=== PATIENT | male | born 1970 | race Caucasian/White ===

== ENCOUNTER 2017-04-15 07:16 | Outpatient (CLI) | payer MEDICAID ==
[2017-04-15 07:48] LABS: BASOPHILS # (AUTO) 0.1 10^3/uL (0.0-0.1); EOSINOPHILS # (AUTO) 0.5 10^3/uL (0.0-0.7); EOSINOPHILS % (AUTO) 6.1 %; HCT - HEMATOCRIT 42.2 % (42.0-52.0); HGB - HEMOGLOBIN 14.7 g/dL (14.0-18.0); LYMPHOCYTES # (AUTO) 2.6 10^3/uL (1.5-3.5); LYMPHOCYTES % (AUTO) 29.1 %; MEAN CORPUSCULAR HEMOGLOBIN 30.9 pg (27.0-31.0); MEAN CORPUSCULAR HGB CONC 34.8 g/dL (32.0-36.0); MEAN CORPUSCULAR VOLUME 88.6 fL (80.0-94.0); MEAN PLATELET VOLUME 8.5 fL (7.4-11.4); MONOCYTES # (AUTO) 0.7 10^3/uL (0.0-1.0); MONOCYTES % (AUTO) 8.1 %; NEUTROPHILS % (AUTO) 55.7 %; NUCLEATED RED BLOOD CELLS AUTO 0.1 /100WBC; RED BLOOD COUNT 4.77 10^6/uL (4.70-6.10); RED CELL DISTRIBUTION WIDTH 12.6 % (12.0-15.0)
[2017-04-15 08:02] LABS: ALBUMIN/GLOBULIN RATIO 1.3 (1.0-2.2); BILIRUBIN,TOTAL 0.5 mg/dL (0.2-1.0); BUN - BLOOD UREA NITROGEN 22 mg/dL (6-20); CALCIUM 9.3 mg/dL (8.5-10.3); CARBON DIOXIDE - CO2 25 mmol/L (21-32); CHLORIDE 102 mmol/L (101-111); CHOL/HDL RATIO 4.7 (<5.0); CHOLESTEROL 212 mg/dL; CREATININE 0.8 mg/dL (0.6-1.2); GFR - MDRD 105 (>89); GLUCOSE 113 mg/dL (70-100); HDL CHOLESTEROL 45 mg/dL; LDL/HDL RATIO 3.3 (<3.6); POTASSIUM 4.3 mmol/L (3.5-5.0); SODIUM 140 mmol/L (135-145); TOTAL PROTEIN 7.7 g/dL (6.7-8.2); TRIGLYCERIDES 95 mg/dL; VLDL CHOLESTEROL 19 mg/dL
== END 2017-04-15 07:17 | disposition home or self-care (01) ==
LOC: LAB 07:16
PROVIDERS: ATTEND Family Medicine
DX: I10 Essential (primary) hypertension (principal); E78.5 Hyperlipidemia, unspecified
CPT/HCPCS: 36415; 80053; 80061; 85025

== ENCOUNTER 2018-06-13 14:28 | Outpatient (CLI) | payer BC, MEDICAID ==
[2018-06-13] MEDS ORDERED: IOVERSOL 320 100 ML VIAL IVP ONE ×2 (14:42→14:57)
--- NOTE | 2018-06-13 15:54 | CT Report ---
Reason: LYMPHADENOPATHY, SOFT TISSUE MASS Procedure Date: 06/13/2018 Accession Number: [id number] / [id number] Procedure: CT - Neck Soft Tissue W/ CPT Code: FULL RESULT: EXAM: CT SOFT TISSUE NECK WITH CONTRAST. EXAM DATE: 06/13/2018 02:55 PM. HISTORY: 48-year-old with palpable right neck mass. Evaluate for neck pathology. COMPARISONS: None. TECHNIQUE: Routine soft tissue neck CT protocol. Reconstructions: Coronal and sagittal. IV contrast: OPTI 320 [address] ML. In accordance with CT protocol optimization, one or more of the following dose reduction techniques were utilized for this exam: automated exposure control, adjustment of mA and/or KV based on patient size, or use of iterative reconstructive technique. FINDINGS: Visualized Intracranial Contents: Unremarkable. Orbits: Symmetric and unremarkable. Sinuses: Small left maxillary mucosal retention cyst versus polyp. Oral cavity: The visualized floor of mouth appears normal. The visualized intrinsic muscles of the tongue appear normal. Visualized glossotonsillar sulci appear preserved. There is slight prominence of the lingual tonsils also with no discrete abnormal masslike enhancement seen. Pharynx : Effacement of the fossa of Rosenmuller with no discrete mass or masslike enhancement seen. The torus tubarius appear symmetric. The mucosal and parapharyngeal spaces of the nasopharynx appear normal. There is prominence to the tonsillar pillars with no discrete mass or masslike enhancement seen. Parapharyngeal spaces and the oropharynx appeared normal. Pre-epiglottic fat and epiglottis appear normal. Asymmetry to the piriform sinuses with a larger left piriform sinus compared to the right. No discrete mass or masslike enhancement seen. Otherwise, the hypopharynx and retropharynx appear normal. Retropharyngeal spaces appear normal. The airway is patent. Larynx: There is asymmetric thickening of the right vocal fold compared to the left with no discrete mass or masslike enhancement seen. Otherwise, the larynx and supraglottic space appear normal. The visualized trachea is unremarkable. Parotid and Submandibular Glands: Bilateral parotid glands appear normal. There is mild hyperenhancement of the right parotid gland compared to the left. There is punctate calcification seen within the proximal right submandibular gland duct measuring up to 5 mm (series 3, image 66). There is prominence of the intraglandular ducts. Lymph Nodes: There are small subcentimeter cervical lymph nodes seen throughout the neck that do not meet CT size criteria for pathology. Sampled lymph nodes include: 1. Right level 2A measuring up to 7 mm in short axis dimension (series 3, image 68). 2. Left level 2B lymph node measuring up to 5 mm in short axis dimension (series 3, image 67). 3. Right level 2B measuring up to 4 mm in short axis imaging (series 3, image 72). 4. Right level 4B lymph node measuring up to 4 mm in short axis dimension (series 3, image 83). Soft tissues: CT marker seen overlying the upper right lateral neck. The CT marker overlies the right parotid gland. No other mass, inflammatory process, fluid collection or abnormal postcontrast enhancement seen within the neck. Vascular Structures: Unremarkable. Thyroid Gland: Normal. Lung: The visualized lung apices are clear. Bones: No evidence of acute fracture or malalignment. There are mild degenerative changes. Other: None. IMPRESSION: 1. CT findings suggesting mild right submandibular gland sialoadenitis likely due to 5 mm sialolith within the proximal right submandibular gland duct, as detailed above. 2. No evidence of cervical lymphadenopathy. RADIA
== END 2018-06-13 14:29 | disposition home or self-care (01) ==
LOC: DI 14:28
PROVIDERS: ATTEND Family Medicine
DX: R59.1 Generalized enlarged lymph nodes (principal); M79.9 Soft tissue disorder, unspecified
CPT/HCPCS: 70491; Q9967

== ENCOUNTER 2018-06-26 10:10 | Day surgery (SDC) | payer BC ==
[2018-06-26] MEDS ORDERED: ceFAZolin 2 GM/50 ML 2 GM/50 ML BAG IV ONE (10:20)
[2018-06-26] MEDS ORDERED: LACTATED RINGERS 1,000 ML IV ONE ×2 (10:50→14:18)
[2018-06-26] MEDS ORDERED: BUPIVACAINE 0.5% PF 30 ML VIAL ONE (11:00)
--- NOTE | 2018-06-26 11:09 | ANESTHESIA ---
Pre-Anesthesia VS, & Labs - Diagnosis subcutaneous soft tissue mass at L ankle - Procedure Excision soft tissue mass at left ankle Vital Signs: Temp Pulse Resp BP Pulse Ox 36.8 C 70 16 164/84 H 100 06/26/18 10:15 06/26/18 10:15 06/26/18 10:15 06/26/18 10:15 06/26/18 10:15 Height 5 ft 6 in Weight (kg) 84.8 kg - NPO >8 hours Home Medications and Allergies Home Medications: Ambulatory Orders ALPRAZolam [Alprazolam] 0.5 mg PO ONCE PRN 06/21/18 Atorvastatin [Lipitor] 10 mg PO DAILY 06/21/18 Lisinopril 5 mg PO DAILY 06/21/18 Paroxetine HCl [Paxil] 40 mg PO DAILY 06/21/18 ALPRAZolam [Alprazolam] 0.5 mg PO ONCE PRN 06/21/18 Atorvastatin [Lipitor] 10 mg PO DAILY 06/21/18 Lisinopril 5 mg PO DAILY 06/21/18 Paroxetine HCl [Paxil] 40 mg PO DAILY 06/21/18 Allergies/Adverse Reactions: Allergies Allergy/AdvReac Type Severity Reaction Status Date / Time avocado Allergy Anaphylaxis Verified 06/21/18 11:25 [place] And Derivatives Allergy Anaphylaxis Verified 06/21/18 11:25 latex Allergy Rash Verified 06/21/18 11:25 Penicillins Allergy Rash Verified 06/21/18 11:25 lactose AdvReac gassy Verified 06/21/18 11:25 Anes History & Medical History - Anesthetic History Anesthesia Complications: reports: No previous complications Family history of Anesthesia Complications: Denies Family history of Malignant Hyperthermia: Denies - Medical History Cardiovascular: reports: Hypertension, High cholesterol, Murmur Pulmonary: reports: Asthma Gastrointestinal: reports: None Urinary: reports: None Musculoskeletal: reports: Osteoarthritis Endocrine/Autoimmune: reports: None Skin: reports: None Smoking Status: Current every day smoker Psychosocial: reports: Alcohol (4-5 month) - Surgical History Orthopedic: Rotator cuff repair, Arthroscopic surgery Exam General: Alert, Oriented x3, Cooperative Dental: WNL, Poor dentition Mouth Openin Fingerbreadth Neck Mobility: Normal Mallampati classification: II Thyromental Distance: 4-6 cm Respiratory: Lungs clear, Normal breath sounds Cardiovascular: Regular rate Neurological: Normal speech Mental/Cognitive Status: Alert/Oriented X3, Normal for patient Cognitive Status: Within normal limits Plan Anesthesia Type: General Consent for Procedure(s) Verified and Reviewed: Yes Code Status: Attempt Resuscitation ASA classification: 2-Mild systemic disease Is this case an emergency?: No
[2018-06-26] MEDS ORDERED: KETOROLAC 30 MG/ML VIAL IVP ONE (13:00)
[2018-06-26] MEDS ORDERED: fentaNYL 100 MCG/2 ML VIAL IVP ONE (13:00)
[2018-06-26] MEDS ORDERED: ONDANSETRON 4 MG/2 ML VIAL IVP ONE (13:00)
[2018-06-26] MEDS ORDERED: PROPOFOL 200 MG/20 ML VIAL IVP ONE (13:00)
[2018-06-26] MEDS ORDERED: LIDOCAINE-MPF 2% 5 ML VIAL IM ONE (13:00)
[2018-06-26] MEDS ORDERED: DEXAMETHASONE 4 MG/ML VIAL IVP ONE (13:00)
[2018-06-26] MEDS ORDERED: MIDAZOLAM 2 MG/2 ML VIAL IVP ONE (13:00)
[2018-06-26] MEDS ORDERED: BUPIVACAINE 0.5% PF 30 ML VIAL INFIL ONE ×2 (13:15)
[2018-06-26] MEDS ORDERED: ONDANSETRON 4 MG/2 ML VIAL IVP PRN (14:40)
[2018-06-26] MEDS ORDERED: HYDROcod/ACETAM 5/325 MG TABLET PO PRN (14:40)
[2018-06-26] MEDS ORDERED: HYDROmorphone 0.5 MG/0.5 ML SYRINGE IVP PRN (14:40)
--- NOTE | 2018-06-26 14:50 | OPERATIVE REPORT ---
Operative Report - General Planned Procedure: Excision of left lateral ankle subcutaneous mass Pre-Op Diagnosis: Left lateral ankle subcutaneous mass Procedure Performed: Excision of left lateral ankle subcutaneous mass Post Op Diagnosis: Same - Procedure Note Primary Surgeon: Jesus Lujan MD Anesthesia Provider: Sarabjit Sebastian CRNA Anesthesia Technique: General LMA, Local (20 mL of half percent Marcaine) IV Fluids (mL): 600 Estimated Blood Loss (mL): 50 Drain/Tube Type: Other (None.) Complications: None. - Other Other Information/Narrative: OPERATIVE DESCRIPTION/REPORT: After verbal and written informed consent was obtained detailing the risks of infection, bleeding requiring transfusion with its risks, nerve injury, and , and after I met with the patient confirming the surgery and the site of t he surgery and after initialing the site of the surgery with a surgical marker, the patient was brought to the operative suite and placed supine on the operating table. Great care was taken to avoid pressure points to prevent pressure necrosis or nerve injury. Monitoring devices were applied along with TEDs and pneumatic compressive stockings on the nonoperative leg (to prevent DVT). The patient received preoperative antibiotics for surgical prophylaxis. Sarabjit Sebastian CRNA sedated and anesthetized the patient for the entire procedure. The patient was prepped and draped in the usual sterile manner. With the patient draped my initials were clearly visible. A "time in" then confirmed that the patient was identified with 3 identifiers (name, date and medical record number), the history and physical was in the chart, the signed consent confirming the procedure was in the chart, the patient was in the correct position, the aforementioned prophylactic measures were in place or g iven, we had the correct personnel and equipment to complete the procedure and that anesthesia, surgery and nursing were given an opportunity to express any concerns. With the agreement of everyone in the room, we proceeded with the operation. A curvilinear incision was made using a scalpel overlying the mass. The mass was encountered just underneath the skin and it was very difficult to raise a flap between the skin in this mass as it was densely adherent. Note that this mass was very hard in nature and was certainly not a cyst or a lipoma. It was an off white color. If I had been able to raise a flap, the flap would have been so thin that the skin would have necrosed. As such, I used an elliptical incision using Bovie electrocautery to incise down to the mass and was able to raise flaps superiorly and inferiorly where the mass was less adherent. In such a manner I was able to dissect the mass free and transition up over the top of the mass onto the posterior aspect of the mass. Throughout the dissection there were dense adhesions to the surrounding tissues as well as microvasculature. Every attempt was made to stay on the tumor with the dissection. This was done using a combination of blunt dissection with a Laurence, blunt dissection with the suction tip, Bovie electrocautery, sharp dissection with the scalpel as well as Metzenbaum scissors. The dissection proceeded along the posterior aspect of the mass inferiorly until I was able to get back to the adherent skin and incising across the skin able to resect the entire mass. The mass was then sent, unoriented, to pathology for evaluation. Meticulous hemostasis was then obtained using Bovie electrocautery. Please note the mass measured 5 x 5 x 2.5 cm and the incision needed to excise it was 8 cm in length. The skin incision was approximated using interrupted alternating simple and mattress 3-0 Nylon sutures. A dressing was applied, followed by Kerlix and an Yobani bandage. At this point a time out was performed that confirmed that all the counts were correct, the procedure that was performed, the blood loss, the IV fluids administered, and the patients condition. Having tolerated the procedure well, the patient was subsequently taken to recovery room in good and stable condition. Robinsonon disclaimer: This document was created in part using voice recognition technology. Because of the inherent limitations of the system ([employer] user manual states that the licensee understands that speech recognition is a statistical process and that recognition errors are inherent in the process), occasional same sounding word substitutions and grammatical errors do occur and persist despite proofreading. Please read this document for context.
[2018-06-26] MEDS ORDERED: HYDROcod/ACETAM 5/325 MG TABLET ONE (15:23)
[2018-06-26 15:53] VITALS: BP 125/66
== END 2018-06-26 10:11 | disposition home or self-care (01) ==
LOC: SDS 10:10
PROVIDERS: ATTEND Surgery
PROC: 0JBR0ZZ Excision of Left Foot Subcutaneous Tissue and Fascia, Open Approach (ICD-10-PCS; principal; 2018-06-26 11:30)
DX: D23.72 Other benign neoplasm of skin of left lower limb, including hip (principal); I10 Essential (primary) hypertension; R01.1 Cardiac murmur, unspecified; M19.90 Unspecified osteoarthritis, unspecified site; E66.01 Morbid (severe) obesity due to excess calories; Z68.32 Body mass index [BMI] 32.0-32.9, adult; J45.909 Unspecified asthma, uncomplicated; F43.10 Post-traumatic stress disorder, unspecified; F41.9 Anxiety disorder, unspecified; I49.9 Cardiac arrhythmia, unspecified; E78.00 Pure hypercholesterolemia, unspecified; F32.9 Major depressive disorder, single episode, unspecified; F17.210 Nicotine dependence, cigarettes, uncomplicated; F17.220 Nicotine dependence, chewing tobacco, uncomplicated; Z72.89 Other problems related to lifestyle
CPT/HCPCS: 11406; A9270; J0690; J7120

== ENCOUNTER 2018-07-12 10:07 | Emergency (ER) | payer BC ==
[2018-07-12] MEDS ORDERED: cefTRIAXone 1 GM VIAL IM STA (11:22)
[2018-07-12] MEDS ORDERED: LIDOCAINE 1% 2 ML VIAL SUBQ ONE (11:22)
--- NOTE | 2018-07-12 12:09 | ED Physician Documentation ---
PD HPI LOWER EXT INJURY - Stated complaint Stated Complaint: POST SURGICAL COMPLICATIONS/ANKLE - Chief complaint Chief Complaint: Wound - History obtained from History obtained from: Patient - History of Present Illness PD HPI LOW EXT INJURY LOCATION: Left, Ankle Recently seen: Clinic (He was seen in clinic this morning and was sent to the emergency department for suture removal.), Surgery (16 days status post surgical excision of a soft tissue mass from his left ankle.) - Additional information Additional information: The patient is a 48-year-old male who is 16 days status post surgical excision of a soft tissue mass from the lateral aspect of his left ankle. One week ago he was seen in follow-up, and some of the sutures were removed at that time. This morning he was seen in surgical clinic for removal of the remaining sutures. However he experienced so much pain with attempted suture removal that he was sent to the emergency department for further evaluation and treatment. He reports that the wound has become increasingly reddened over the past few days, as well as slightly more swollen. He denies fever or calf pain. Post surgery he had been taking clindamycin at his own discretion from a previous prescription, not because the surgeon had ordered antibiotics post surgery. He stopped the antibiotics one week ago. Review of Systems Constitutional: denies: Fever Nose: denies: Congestion Respiratory: denies: Dyspnea, Cough GI: denies: Nausea, Vomiting Skin: denies: Rash Musculoskeletal: reports: Extremity pain (left ankle). denies: Back pain Neurologic: denies: Headache PD PAST MEDICAL HISTORY - Past Medical History Past Medical History: Yes Cardiovascular: Hypertension, High cholesterol, Murmur Respiratory: Asthma Endocrine/Autoimmune: None GI: None : None HEENT: Other Psych: Depression, Anxiety, Post traumatic stress disorder Musculoskeletal: Osteoarthritis Derm: None - Past Surgical History Past Surgical History: Yes Ortho: Rotator cuff repair, Arthroscopic surgery - Present Medications Home Medications: Ambulatory Orders Medication Instructions Recorded Confirmed ALPRAZolam [Alprazolam] 0.5 mg PO ONCE PRN 06/21/18 07/12/18 Atorvastatin [Lipitor] 10 mg PO DAILY 06/21/18 07/12/18 Lisinopril 5 mg PO DAILY 06/21/18 07/12/18 Paroxetine HCl [Paxil] 40 mg PO DAILY 06/21/18 07/12/18 cephALEXin [Cephalexin] 500 mg PO TID #20 tablet 07/12/18 - Allergies Allergies/Adverse Reactions: Allergies Allergy/AdvReac Type Severity Reaction Status Date / Time avocado Allergy Anaphylaxis Verified 07/12/18 10:13 [place] And Derivatives Allergy Anaphylaxis Verified 07/12/18 10:13 latex Allergy Rash Verified 07/12/18 10:13 Penicillins Allergy Rash Verified 07/12/18 10:13 lactose AdvReac gassy Verified 07/12/18 10:13 - Social History Does the pt smoke?: Yes Smoking Status: Current every day smoker Does the pt drink ETOH?: Yes ETOH Use: Beer Does the pt have substance abuse?: No - Immunizations Immunizations are current?: Yes - POLST Patient has POLST: No PD ED PE NORMAL - Vitals Vital signs reviewed: Yes (Mild hypertension initially.) - General General: Alert and oriented X 3, Well developed/nourished - HEENT HEENT: Atraumatic - Cardiac Cardiac: RRR - Respiratory Respiratory: No respiratory distress - Derm Derm: No rash - Extremities Extremities: No edema, No calf tenderness / cord, Other (Surgical wound on the lateral aspect of the left ankle is partially open, consistent with skin excision. For remaining sutures are noted. There is surrounding erythema and slight warmth to palpation. There is only serous drainage; no purulent drainage. No lymphangitic streaking. Distal neurovascular is intact.) - Neuro Neuro: Alert and oriented X 3, No motor deficit, No sensory deficit Results - Vitals Vitals: Oxygen O2 Source Room air - Labs Labs: Microbiology 07/12/18 11:20 Wound Culture - Preliminary Ankle - Left Staphylococcus Aureus Procedures - Suture/staple Removal (location) Lower extremity left Lateral Suture/staple removal: # sutures (4), Infected PD MEDICAL DECISION MAKING - ED course Complexity details: reviewed old records, re-evaluated patient, considered differential, d/w patient, d/w family, d/w reporting consultant ED course: The patient's presentation is significant for a postoperative wound infection. Culture of the wound was obtained and sent to the lab, where results are pendi ng. After discussing the patient's presentation with the general surgeon who saw him in clinic, the sutures were removed. Cephalexin 500 mg is administered orally. He is being discharged with prescription for cephalexin. I discussed with him and his the importance of outpatient follow-up, as well as potentially worrisome signs or symptoms that should prompt reevaluation in the emergency department. Departure - Departure Disposition: 01 Home, Self Care Clinical Impression: Wound infection after surgery, Encounter for removal of sutures Condition: Stable Instructions: ED Wound Infec After Surgery Follow-Up: Hazel Garg MD [Primary Care Provider] - Jesus Lujan MD [Provider Admit Priv/Credential] - Prescriptions: cephALEXin [Cephalexin] 500 mg PO TID #20 tablet Comments: Keep your left leg elevated as much of the time as possible. Take cephalexin 3 times daily as prescribed. Follow-up with the general surgeon within 1-2 weeks. Call to schedule appointment, if you do not already have one. Return to the emergency department if you develop increasing redness, swelling, pain, or otherwise worsening symptoms. Forms: Activity restrictions Discharge Date/Time: 07/12/18 12:20
[2018-07-12 12:19] VITALS: BP 139/79
== END 2018-07-12 12:20 | disposition home or self-care (01) ==
LOC: ED 10:07
DX: E78.00 Pure hypercholesterolemia, unspecified (principal); F17.200 Nicotine dependence, unspecified, uncomplicated
CPT/HCPCS: 87070; 87181; 87205; 96372; 99283